=== PATIENT | female | born 1970 | race Caucasian/White ===

== ENCOUNTER 2018-01-16 18:34 | Emergency (ER) | payer OTHER ==
[~2018-01-16] VITALS: Ht 157.5 cm; Wt 80.7 kg
[~2018-01-16 18:34] MED LIST: A-B OTIC EAR DR15 ML OT; AMOXICILLIN 50500 MG PO; CORTISPORIN OTI10 M2 OT; FLEXERIL PO; NORCO 5-325 TA1 EACH PO; PERCOCET 5-3251 EACH PO; SUPRAX400 MG PO; TRAMADOL 50 MG50 MG PO
[2018-01-16] MEDS ORDERED: LOSARTAN-HCTZ1 EACH PO (18:40)
[2018-01-16] MEDS ORDERED: PROTONIX40 M1 PO (18:40)
[2018-01-16] MEDS ORDERED: TOLTERODINE TART4 MG PO (18:40)
[2018-01-16] MEDS ORDERED: LIPITOR 20 MG T20 M1 PO (18:41)
[2018-01-16] MEDS ORDERED: AMARYL2 MG PO (18:41)
[2018-01-16] MEDS ORDERED: BUSPIRONE HCL10 MG PO (18:42)
[2018-01-16] MEDS ORDERED: VITAMIN D250000 UNIT PO (18:42)
[2018-01-16] MEDS ORDERED: ALL DAY ALLERGY10 M3 PO (18:43)
[2018-01-16] MEDS ORDERED: JANUVIA100 MG PO (18:43)
[2018-01-16] MEDS ORDERED: UNICOMPLEX M TA1 TA1 PO (18:44)
[2018-01-16] MEDS ORDERED: ASPIR 8181 MG PO (18:44)
[2018-01-16 18:56] LABS: ABSOLUTE BASOPHILS 0.1 thou/uL (0.0-0.2); ABSOLUTE EOSINOPHILS 0.1 thou/uL (0.0-0.7); ABSOLUTE LYMPHOCYTES 4.7 thou/uL (0.8-5.3); ABSOLUTE MONOCYTES 0.6 thou/uL (0.0-1.2); ABSOLUTE NEUTROPHILS 6.5 thou/uL (1.6-8.1); BASOPHILS 0.7 %; EOSINOPHILS 0.8 %; HEMATOCRIT 42.6 % (37.0-47.0); HEMOGLOBIN 14.4 gm/dL (12.0-15.0); MCHC 33.8 g/dL (28.0-37.0); MCV 91.6 fL (80.0-100.0); MONOCYTES 5.2 %; MPV 7.3 fl. (7.2-11.1); NUCLEATED RBCS 0 /100WBC; PLATELET COUNT* 252 thou/uL (150-400); POLYS 54.3 %; RBC 4.65 mil/uL (4.20-5.00); RDW-CV 13.8 % (10.5-14.5)
[2018-01-16 19:05] LABS: ANION GAP 8 mmol/L (7-16); BUN 17 mg/dL (7-18); CALCIUM 8.8 mg/dL (8.5-10.1); CHLORIDE 104 mmol/L (98-107); CO2 31 mmol/L (21-32); CREATININE 0.8 mg/dL (0.6-1.3); GLUCOSE 94 mg/dL (70-99); POTASSIUM 3.6 mmol/L (3.5-5.1); SODIUM 143 mmol/L (136-145)
[2018-01-16 19:09] LABS: APTT 29.5 Seconds (25.0-31.3)
[2018-01-16 19:24] LABS: ALBUMIN 4.1 g/dL (3.4-5.0); ALKALINE PHOSPHATASE 88 U/L (46-116); CK-MB MASS 0.7 ng/mL (<0.5-3.6); LIPASE 159 U/L (73-393); MAGNESIUM 2.1 mg/dL (1.8-2.4); NT-PRO BRAIN NAT PEPTIDE 9 pg/mL (<300); SGOT 21 U/L (15-37); SGPT 31 U/L (30-65); TOTAL PROTEIN 6.9 g/dL (6.4-8.2); TROPONIN-I LEVEL <0.06 ng/mL (<0.06)
[2018-01-16] MEDS ORDERED: NORCO 5-325 TA1 EACH PO ×2 (19:59→20:06)
[2018-01-16 20:29] VITALS: BP 109/66
--- NOTE | 2018-01-17 14:10 | EKG ---
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 : 1970 Requested By: Lul Hoang Order Number: [id number] MD: Robert Calhoun Measurements Intervals [place] Rate: 90 P: 35 SD: 125 QRS: 19 QRSD: 91 T: 57 QT: 376 QTc: 460 Interpretive Statements Sinus rhythm Compared to ECG 08/11/2012 17:37:39 Ventricular premature complex(es) no longer present Myocardial infarct finding no longer present Electronically Signed On 01-17-2018 14:10:05 CDT by Robert Calhoun [email or web address] <ELECTRONICALLY SIGNED> By: Robert Calhoun MD, [facility] 01/17/18 1410 1838 37 Robert Calhoun MD, [facility] /EPI
== END 2018-01-16 20:30 | disposition home or self-care (01) ==
LOC: M.ERS 18:34
PROVIDERS: Family Medicine
DX: R07.89 Other chest pain (principal); I10 Essential (primary) hypertension; E78.5 Hyperlipidemia, unspecified; E11.9 Type 2 diabetes mellitus without complications; Z88.8 Allergy status to other drugs, medicaments and biological substances; F17.210 Nicotine dependence, cigarettes, uncomplicated; Z90.710 Acquired absence of both cervix and uterus